=== PATIENT | male | born 1965 | race Two or more races ===

== ENCOUNTER 2019-11-21 16:18 | Inpatient (IN) | payer MEDICARE, MEDICAID ==
[~2019-11-21] VITALS: Ht 170.2 cm; Wt 62.0 kg
[2019-11-21 17:09] LABS: Basophils # (auto) 0.1 10 ^3/uL (0-0.2); Basophils % (auto) 0.6 % (0.0-2.0); Eosinophils # (auto) 0 10 ^3/uL (0-0.8); Eosinophils % (auto) 0.2 % (0.0-7.0); Hematocrit 32.2 % (41.0-53.0); Hemoglobin 10.4 g/dL (13.5-17.5); Lymphocytes # (auto) 1.8 10 ^3/uL (0.4-5.4); Lymphocytes % (auto) 14.8 % (10.0-50.0); Mean Corpuscular Hemoglobin 29.1 pg (28.0-32.0); Mean Corpuscular Hgb Conc. 32.3 g/dL (32.0-36.0); Monocytes # (auto) 1.7 10 ^3/uL (0-1.3); Monocytes % (auto) 13.6 % (0.0-12.0); Neutrophils # (auto) 8.6 10 ^3/uL (1.6-8.6); Neutrophils % (auto) 70.8 % (37.0-80.0); Platelet Count (auto) 273 10^3/uL (140-450); Red Blood Cells 3.57 10^6/uL (4.5-5.90); Red Cell Distribution Width 14.5 % (11.8-14.3); White Blood Cell 12.2 10^3/uL (4.4-10.8)
[2019-11-21] MEDS ORDERED: SODIUM CHLORIDE 0.9% 1,000 ML IV ONE (17:15)
[2019-11-21 17:29] LABS: Potassium 3.2 mmol/L (3.5-5.1)
[2019-11-21 17:30] LABS: Albumin 1.4 g/dL (3.4-5.0); Calcium 7.1 mg/dL (8.5-10.1); Magnesium 2.1 mg/dL (1.6-2.6)
[2019-11-21 17:38] LABS: Bilirubin, Total 0.5 mg/dL (0.2-1.0); Total Protein 5.1 g/dL (6.4-8.2)
[2019-11-21] MEDS ORDERED: HYDROmorphone HCL 2 MG/ML VL IV ONE (17:45)
[2019-11-21] MEDS ORDERED: METOCLOPRAMIDE HCL 5MG/ml INJ 2ml VIAL IV ONE (17:45)
[2019-11-21 18:08] LABS: Urine Bacteria MANY /hpf (None Seen); Urine Blood 2+ /uL (Negative); Urine WBC 1625 /hpf (0 - 3); Urine WBC Clumps PRESENT /hpf (None Seen)
[2019-11-22] MEDS ORDERED: SODIUM CHLORIDE 0.9% 1,000 ML IV ONE (02:30)
[2019-11-22] MEDS ORDERED: ACETAMINOPHEN 325 MG TAB PO PRN (02:30)
[2019-11-22] MEDS ORDERED: MORPHINE SULFATE 4 MG/ML SYR/VIAL IV PRN (02:30)
[2019-11-22] MEDS ORDERED: MORPHINE SULF INJ 2 MG/ML SYRINGE 1ML IV PRN (02:30)
[2019-11-22] MEDS ORDERED: NITROGLYCERIN 0.4 MG SL TAB SL PRN ×2 (02:30)
[2019-11-22] MEDS ORDERED: ONDANSETRON HCL 4 MG/2 ML VIAL IV PRN (02:30)
[2019-11-22] MEDS: ENOXAPARIN SOD 60 MG/0.6 ML SYRINGE SC SCH ×2 (03:15→10:05)
[2019-11-22] MEDS: cefTRIAXone 1GM/50ML D5W 50 ML IV SCH (03:15)
[2019-11-22] MEDS ORDERED: CALC667C PO (06:59)
[2019-11-22] MEDS ORDERED: AMLO5TAB15 PO (06:59)
[2019-11-22] MEDS ORDERED: GABA300C10 PO (06:59)
[2019-11-22] MEDS ORDERED: PANC12002 PO (06:59)
[2019-11-22] MEDS ORDERED: SEVE800T8 PO (06:59)
[2019-11-22 08:22] VITALS: BP 159/87
[2019-11-22 09:00] VITALS: BP 159/87
[2019-11-22] MEDS: PANTOPRAZOLE 40 MG/10 ML VIAL INJ IV SCH (10:02)
[2019-11-22] MEDS: DOCUSATE SOD 100 MG CAP PO SCH (10:02)
[2019-11-22] MEDS: ASPirin 81 mg TAB PO SCH (10:02)
[2019-11-22] MEDS: CARVEDILOL 3.125 MG TAB PO SCH ×2 (10:03→23:12)
[2019-11-22] MEDS: NIFEdipine ER 30 MG TAB PO SCH (10:04)
[2019-11-22] MEDS: CLOPIDOGREL BISULFATE 75 MG TAB PO SCH (10:04)
[2019-11-22] MEDS ORDERED: DEXTROSE (50%) 50ML SYRG IV PRN (11:45)
[2019-11-22 13:00] VITALS: BP 145/86
[2019-11-22 16:16] LABS: Basophils # (auto) 0.1 10 ^3/uL (0-0.2); Basophils % (auto) 1.1 % (0.0-2.0); Eosinophils # (auto) 0 10 ^3/uL (0-0.8); Eosinophils % (auto) 0.4 % (0.0-7.0); Hematocrit 33.2 % (41.0-53.0); Hemoglobin 10.8 g/dL (13.5-17.5); Lymphocytes # (auto) 1.5 10 ^3/uL (0.4-5.4); Mean Corpuscular Hemoglobin 29.1 pg (28.0-32.0); Mean Corpuscular Hgb Conc. 32.5 g/dL (32.0-36.0); Mean Corpuscular Volume 89.7 fL (80.0-100.0); Monocytes # (auto) 0.9 10 ^3/uL (0-1.3); Monocytes % (auto) 7.9 % (0.0-12.0); Neutrophils # (auto) 8.3 10 ^3/uL (1.6-8.6); Neutrophils % (auto) 76.6 % (37.0-80.0); Nucleated Red Blood Cells % 0.1 %; Platelet Count (auto) 285 10^3/uL (140-450); White Blood Cell 10.9 10^3/uL (4.4-10.8)
[2019-11-22 16:31] LABS: Calcium 7.1 mg/dL (8.5-10.1); Potassium 3.3 mmol/L (3.5-5.1)
[2019-11-22 16:33] LABS: BUN/Creatinine Ratio 4.5; Phosphorus 4.1 mg/dL (2.5-4.90)
[2019-11-22] MEDS: ACCU-CHEK COMFORT CURVE STRIP VI SCH ×2 (17:00→22:00)
[2019-11-22] MEDS: InsuLIN REG 1unit/0.01ml Soln (100units/ml) SC SCH ×2 (17:00→22:00)
--- NOTE | 2019-11-22 19:00 | NUR ---
Opening Shift Note Assumed care of patient, awake and alert. No S/S of distress/SOB or pain. Instructed on POC and to call for assist PRN, will continue to monitor for changes Q1hr and PRN.
[2019-11-22 22:00] VITALS: BP 119/71
[2019-11-22] MEDS: ATORVASTATIN 20 MG TAB PO SCH (23:12)
--- NOTE | 2019-11-23 03:30 | NUR ---
Pt reports he is feeling hypoglycemic. Pt alert and oriented x4. ACCU check result of 36. After 50 ml dextrose IV BS 122.Offered apple juice I will recheck in one hour.
--- NOTE | 2019-11-23 04:30 | NUR ---
BS recheck results 65 Offered apple juice. Will continue to monitor and recheck the BS
[2019-11-23 05:00] VITALS: BP 107/67
[2019-11-23] MEDS ORDERED: SODIUM CHL 0.9% 1000 ML BAG XX ONE (07:00)
[2019-11-23] MEDS: InsuLIN REG 1unit/0.01ml Soln (100units/ml) SC SCH ×4 (07:00→22:00)
[2019-11-23] MEDS: ACCU-CHEK COMFORT CURVE STRIP VI SCH ×4 (07:04→22:00)
--- NOTE | 2019-11-23 07:30 | NUR ---
Opening Shift Note Assumed patient care from NOC Rn. Patient currently resting with eyes closed, respirations even and unlabored, safety precautions in place, will continue to monitor.
[2019-11-23 07:39] LABS: Basophils # (auto) 0.1 10 ^3/uL (0-0.2); Eosinophils # (auto) 0.1 10 ^3/uL (0-0.8); Eosinophils % (auto) 1.4 % (0.0-7.0); Hemoglobin 10.2 g/dL (13.5-17.5); Lymphocytes # (auto) 1.1 10 ^3/uL (0.4-5.4); Lymphocytes % (auto) 13.2 % (10.0-50.0); Mean Corpuscular Hemoglobin 29.3 pg (28.0-32.0); Mean Corpuscular Hgb Conc. 32.9 g/dL (32.0-36.0); Mean Corpuscular Volume 89.1 fL (80.0-100.0); Monocytes # (auto) 0.6 10 ^3/uL (0-1.3); Monocytes % (auto) 7.4 % (0.0-12.0); Neutrophils # (auto) 6.4 10 ^3/uL (1.6-8.6); Platelet Count (auto) 286 10^3/uL (140-450); Red Blood Cells 3.47 10^6/uL (4.5-5.90); Red Cell Distribution Width 14.2 % (11.8-14.3); White Blood Cell 8.3 10^3/uL (4.4-10.8)
[2019-11-23 08:46] VITALS: BP 121/85
[2019-11-23] MEDS: NIFEdipine ER 30 MG TAB PO SCH (10:00)
[2019-11-23] MEDS: CARVEDILOL 3.125 MG TAB PO SCH ×2 (10:00→23:20)
[2019-11-23] MEDS: DOCUSATE SOD 100 MG CAP PO SCH (10:00)
[2019-11-23] MEDS: CLOPIDOGREL BISULFATE 75 MG TAB PO SCH (10:04)
[2019-11-23] MEDS: ASPirin 81 mg TAB PO SCH (10:04)
[2019-11-23] MEDS: PANTOPRAZOLE 40 MG/10 ML VIAL INJ IV SCH (10:04)
[2019-11-23] MEDS: cefTRIAXone 1GM/50ML D5W 50 ML IV SCH (10:11)
--- NOTE | 2019-11-23 11:15 | NUR ---
at Bedside Dr. Pires at bedside. New orders received.
[2019-11-23 12:55] VITALS: BP 125/77
--- NOTE | 2019-11-23 13:23 | NUR ---
Called [facility] Called [facility] dialysis, spoke with Bonnie. Per Bonnie, patient is on list for dialysis today. Will notify HD RN to call with estimated time of dialysis.
--- NOTE | 2019-11-23 16:58 | NUR ---
Called [facility] Recalled [facility] dialysis inquiring about estimated time for dialysis. Spoke to Jessie who said patient will be seen tomorrow (per plastics fitter). Left message for plastics fitter asking to call back regarding reason for change of schedule. Per Jessie, message will be passed on.
[2019-11-23 17:00] VITALS: BP 137/83
[2019-11-23] MEDS ORDERED: EPOETIN ALFA 4,000 UNIT/ML VL SC ONE (21:00)
[2019-11-23 22:00] VITALS: BP_SYST 104; BP_SYST 119; BP_DIAS 68; BP_DIAS 70
--- NOTE | 2019-11-23 22:30 | NUR ---
End of dialysis 3000 ml were removed No complains
[2019-11-23] MEDS: ATORVASTATIN 20 MG TAB PO SCH (23:18)
--- NOTE | 2019-11-24 05:21 | NUR ---
Attempted 2 times to collect urine from the catheter.Unable to obtain. Due to the dialysis no urine production.
[2019-11-24 06:00] VITALS: BP 138/81
[2019-11-24] MEDS: ACCU-CHEK COMFORT CURVE STRIP VI SCH ×4 (06:51→21:53)
[2019-11-24] MEDS: InsuLIN REG 1unit/0.01ml Soln (100units/ml) SC SCH ×4 (06:51→21:53)
--- NOTE | 2019-11-24 08:00 | NUR ---
Opening Shift Note Assumed care of patient, awake, alert and oriented X4. No S/S of distress/SOB or pain. Tele# 81, sinus rhythm @ 62 bpm. IV to right forearm, 22 gauge, patent and saline locked. Left upper arm Hemodialysis shunt. Urethral Bolanos catheter with no output. Instructed on POC and to call for assist PRN, verbalized understanding. Bed locked, in lowest position, call light within reach, will continue to monitor for changes Q1hr and PRN.
[2019-11-24 09:00] VITALS: BP 131/69
[2019-11-24] MEDS: DOCUSATE SOD 100 MG CAP PO SCH (10:00)
[2019-11-24] MEDS: ASPirin 81 mg TAB PO SCH (10:31)
[2019-11-24] MEDS: cefTRIAXone 1GM/50ML D5W 50 ML IV SCH (10:31)
[2019-11-24] MEDS: PANTOPRAZOLE 40 MG/10 ML VIAL INJ IV SCH (10:31)
[2019-11-24] MEDS: CARVEDILOL 3.125 MG TAB PO SCH ×2 (10:32→22:40)
[2019-11-24] MEDS: NIFEdipine ER 30 MG TAB PO SCH (10:32)
[2019-11-24] MEDS: CLOPIDOGREL BISULFATE 75 MG TAB PO SCH (10:32)
[2019-11-24] MEDS: ENOXAPARIN SOD 60 MG/0.6 ML SYRINGE SC SCH (10:33)
--- NOTE | 2019-11-24 11:30 | NUR ---
ROUNDS Dr Charli Pires at bedside for rounds, no new orders at this time. Patient updated on plan of care, verbalized understanding.
[2019-11-24 13:00] VITALS: BP 134/74
[2019-11-24 16:39] VITALS: BP 147/78
--- NOTE | 2019-11-24 19:15 | NUR ---
Care endorsed to PAO Aldridge, night nurse
[2019-11-24 22:00] VITALS: BP 127/74
[2019-11-24] MEDS: ATORVASTATIN 20 MG TAB PO SCH (22:37)
[2019-11-25 05:00] VITALS: BP 112/69
[2019-11-25] MEDS: ACCU-CHEK COMFORT CURVE STRIP VI SCH ×2 (06:22→11:39)
[2019-11-25] MEDS ORDERED: SODIUM CHL 0.9% 1000 ML BAG XX ONE (07:00)
[2019-11-25] MEDS: InsuLIN REG 1unit/0.01ml Soln (100units/ml) SC SCH ×2 (07:00→11:38)
--- NOTE | 2019-11-25 08:00 | NUR ---
OPENING SHIFT NOTE ASSUMED CARE OF PATIENT AWAKE AND ALERT. NO S/S OF DISTRESS NOTED OR COMPLAINTS OF PAIN. PATIENT UPDATED ON POC FOR THE DAY AND ALL QUESTIONS ANSWERED. BED IS IN LOWEST, LOCKED POSITION WITH SIDE RAILS UP X2, CALL LIGHT WITHIN REACH, AND BED ALARM ON FOR SAFETY. WILL CONTINUE TO MONITOR Q1H AND PRN.
[2019-11-25 09:00] VITALS: BP 137/75
[2019-11-25] MEDS: NIFEdipine ER 30 MG TAB PO SCH ×2 (09:30→10:45)
[2019-11-25] MEDS: CARVEDILOL 3.125 MG TAB PO SCH (10:00)
--- NOTE | 2019-11-25 10:08 | NUR ---
HEMODIAYSIS START TIME: 0700 END TIME: 1000 2L REMOVED, BP 127/79, HR 77. PATIENT TOLERATED WELL. WILL CONTINUE CARE.
[2019-11-25] MEDS: PANTOPRAZOLE 40 MG/10 ML VIAL INJ IV SCH (10:44)
[2019-11-25] MEDS: CLOPIDOGREL BISULFATE 75 MG TAB PO SCH (10:44)
[2019-11-25] MEDS: DOCUSATE SOD 100 MG CAP PO SCH (10:44)
[2019-11-25] MEDS: cefTRIAXone 1GM/50ML D5W 50 ML IV SCH (10:44)
[2019-11-25] MEDS: ASPirin 81 mg TAB PO SCH (10:44)
[2019-11-25] MEDS: ENOXAPARIN SOD 60 MG/0.6 ML SYRINGE SC SCH (10:45)
--- NOTE | 2019-11-25 11:52 | NUR ---
Nutrition Assessment Notes please see attached link for complete assessment Est energy needs BW 62 [id number] kcal (30-35 kcal/kg BW), Est protein needs: 74-93 g (1.2-1.5 g/kg BW r/t HD) Will reassess prn. Addendum: 11/25/19 at [address] Amended: Links added.
[2019-11-25 13:00] VITALS: BP 121/73
--- NOTE | 2019-11-25 16:01 | NUR ---
Discharge instructions given as ordered. Encourage to follow up with PMD as instructed. All questions and concerns addressed. Patient verbalized understanding. Medication reconciliation form completed and copy given to patient. Home medications held in Pharmacy returned to patient, and needed vaccines given. IV removed with catheter intact, pressure dressing applied, phillips catheter removed. Telemetry unit returned to ICU. Patient taken to vehicle via wheelchair with all personal belongings, accompanied by staff and family member. No distress noted at time of departure. Addendum: 11/25/19 at 1601 by Edilia Navarro RN Discharge instructions given as ordered. Encourage to follow up with PMD as instructed. All questions and concerns addressed. Patient verbalized understanding. IV removed with catheter intact, pressure dressing applied. Telemetry unit returned to ICU. Patient taken to vehicle via wheelchair with all personal belongings, accompanied by staff. No distress noted at time of departure.
[2019-11-25] MEDS ORDERED: EPOETIN ALFA 4,000 UNIT/ML VL SC ONE (21:00)
== END 2019-11-25 16:00 | disposition home or self-care (01) | DRG 871 ==
LOC: ER 16:18 → TELE 16:19 → TELE-WESTW 11-22 06:03
PROVIDERS: ADMIT Hospitalist; ATTEND Family Medicine
PROC: 5A1D70Z Performance of Urinary Filtration, Intermittent, Less than 6 Hours Per Day (ICD-10-PCS; principal; 2019-11-23)
PROC: 5A1D70Z Performance of Urinary Filtration, Intermittent, Less than 6 Hours Per Day (ICD-10-PCS; 2019-11-25)
DX: A41.9 Sepsis, unspecified organism (principal); N18.6 End stage renal disease; I21.4 Non-ST elevation (NSTEMI) myocardial infarction; I12.0 Hypertensive chronic kidney disease with stage 5 chronic kidney disease or end stage renal disease; N39.0 Urinary tract infection, site not specified; R64 Cachexia; K86.1 Other chronic pancreatitis; E87.6 Hypokalemia; E11.22 Type 2 diabetes mellitus with diabetic chronic kidney disease; D63.1 Anemia in chronic kidney disease; E11.40 Type 2 diabetes mellitus with diabetic neuropathy, unspecified; Z74.01 Bed confinement status; Z99.2 Dependence on renal dialysis; Z79.899 Other long term (current) drug therapy; Z83.3 Family history of diabetes mellitus; Z82.49 Family history of ischemic heart disease and other diseases of the circulatory system
CPT/HCPCS: 36415; 71046; 74176; 80048; 80053; 80061; 81001; 82306; 82550; 82962; 83036; 83690; 83735; 83970; 84100; 84443; 84484; 85025; 87040; 87086; 87088; 87186; 93005; 93306; C9113; G0378; J0696; J1642; J1815